=== PATIENT | female | born 1980 | race Caucasian/White ===

== ENCOUNTER 2017-09-14 18:51 | Emergency (ER) | payer OTHER ==
--- NOTE | 2017-09-14 18:58 | ED Physician Documentation ---
Ear Complaints - HISTORIAN Historian: patient - HPI Stated Complaint: ear pain Chief Complaint: Earache Timing: better Location of Pain: L ear Severity: mild Associated Symptoms: sharp pain (on and off ), dull pain. denies: fever, chills Further Comments: yes (She states that three days ago she started with sharp / dull - on and off ear pain. She has no headache. she did take Benadryl x 1 last night and tylenol for a fever of 101 and this did help. She denies any other complaints. No sick contacts) - ROS CONST: no problems CVS/RESP: denies: shortness of breath MS/SKIN/LYMPH: none - PAST HX Past History: none Immunizations: UTD Allergies/Adverse Reactions: Allergies Allergy/AdvReac Type Severity Reaction Status Date / Time No Known Allergies Allergy Verified 03/19/14 09:30 Home Medications: Ambulatory Orders Medication Instructions Recorded NK [NK] 03/19/14 - SOCIAL HX Smoking History: non-smoker Alcohol Use: none Drug Use: none - FAMILY HX Family History: No - VITAL SIGNS Vital Signs: Vital Signs Temp Pulse Resp BP Pulse Ox 136/78 03/19/14 10:03 - REVIEWED ASSESSMENTS Nursing Assessment Reviewed: Yes Vitals Reviewed: Yes Ear Complaint Physical Exam - EXAM General Appearance: no acute distress, alert Ear: auricle nml, TM's nml. No: pain w movement of auricl Mouth/Throat: lips nml, gums nml, pharynx nml Nose: nml inspection Resp/CVS: chest non-tender, breath sounds nml, heart sounds nml Abdomen: non-tender Skin: nml color, no skin rash Neuro/Psych: oriented x3, mood/affect nml Discharge Clincal Impression: Ear pain Qualifiers: Laterality: bilateral Qualified Code(s): H92.03 - Otalgia, bilateral Referrals: Earline Luna MD [Primary Care Provider] - 2 Days Comments: 1. Sudafed OTC for sinus congestion 2. Tylenol or Ibuprofen as needed for fever or pain 3. Increase fluids 4. Return to PCP for eval if no improvement in 2-4 days 5. Return to ER if concerns are increased Condition: Stable Disposition: 01 HOME, SELF-CARE Decision to Admit: NO Date of Decison to Admit: 09/14/17 Decision Time: 19:10
[2017-09-14 19:09] VITALS: BP 129/75
== END 2017-09-14 19:10 | disposition home or self-care (01) ==
LOC: ED 18:51
DX: H92.03 Otalgia, bilateral (principal)
CPT/HCPCS: 99282

== ENCOUNTER 2017-09-19 13:53 | Outpatient (CLI) | payer OTHER ==
[2017-09-19 14:39] LABS: eGFR (African) > 60; eGFR (Non-African) > 60
== END 2017-09-19 14:00 ==
LOC: LAB 13:53
PROVIDERS: ATTEND Family Medicine
DX: Z00.00 Encounter for general adult medical examination without abnormal findings (principal)
CPT/HCPCS: 36415; 80053; 80061